=== PATIENT | male | born 1965 | race Caucasian/White ===

== ENCOUNTER → 2024-06-02 13:46 | Outpatient (REF) | payer BC, SELFPAY | LOC: HWRCS 13:46 | PROVIDERS: ATTENDING PHYSICIAN Internal Medicine | DX: E78.5 Hyperlipidemia, unspecified (principal) | CPT/HCPCS: 93306 ==

== ENCOUNTER → 2024-06-02 14:19 | Outpatient (REF) | payer SELFPAY | LOC: HWRAD 14:19 | PROVIDERS: ATTENDING PHYSICIAN Internal Medicine | DX: E78.5 Hyperlipidemia, unspecified (principal) | CPT/HCPCS: 75571 ==